=== PATIENT | female | born 1965 | race Caucasian/White ===

== ENCOUNTER 2020-04-25 17:59 | Emergency (ER) | payer MEDICAID ==
[~2020-04-25] VITALS: Ht 162.6 cm; Wt 58.1 kg
[2020-04-25 18:13] VITALS: Ht 162.6 cm; Wt 58.1 kg
[2020-04-25 19:27] LABS: BASOPHIL % 1.5 % (0-2); PLATELET COUNT 291 x10^3mcL (130-400); RED CELL DISTRIBUTION WIDTH 12.6 % (11.5-14.5)
[2020-04-25 19:37] LABS: CALCIUM 8.2 mg/dL (8.5-10.1); CARBON DIOXIDE 28.9 mmol/L (21-32); CHLORIDE SERUM 106 mmol/L (98-107); CREATININE SERUM 0.6 mg/dL (0.6-1.0); GFR1 > 60 mL/min; GLUCOSE SERUM 103 mg/dL (74-106); POTASSIUM SERUM 4.1 mmol/L (3.5-5.1); SODIUM SERUM 140 mmol/L (136-145)
[2020-04-25 19:41] LABS: ALBUMIN 3.6 g/dL (3.4-5.0); ALKALINE PHOSPHATASE 78 U/L (46-116); ALT/SGPT 34 U/L (14-59); AST/SGOT 17 U/L (15-37); BILIRUBIN TOTAL 0.33 mg/dL (0.20-1.00); TOTAL PROTEIN, SERUM 6.8 g/dL (6.4-8.2)
[2020-04-25 20:44] VITALS: BP 104/47
== END 2020-04-25 20:44 | disposition home or self-care (01) ==
LOC: ED 17:59
PROVIDERS: Emergency Medicine
DX: R07.89 Other chest pain (principal); Z90.710 Acquired absence of both cervix and uterus